=== PATIENT | male | born 1965 | race Two or more races ===

== ENCOUNTER 2021-08-06 13:17 | Emergency (ER) | payer OTHER, SELFPAY ==
--- NOTE | ~2021-08-06 | XR_ITS ---
EXAMINATION: LEFT HAND AND WRIST CLINICAL INFORMATION: Injury. COMPARISON: None TECHNIQUE: 4 views of the left hand and wrist FINDINGS: There is no fracture. No dislocation. Joint spaces are normal. XR/XR hand wrist LT IMPRESSION: Normal left hand and wrist.
[2021-08-06 13:57] VITALS: BP 131/78; PULSE 81; RESP 18; TEMP 36.9; O2SAT 98; BMI 30.2
--- NOTE | 2021-08-06 15:52 | ECG_ITS ---
Test Reason : FALL Blood Pressure : / mmHG Vent. Rate : 057 BPM Atrial Rate : 057 BPM P-R Int : 114 ms QRS Dur : 092 ms QT Int : 398 ms P-R-T Axes : 073 012 055 degrees QTc Int : 387 ms Sinus bradycardia with Premature supraventricular complexes Incomplete right bundle branch block Borderline ECG No previous ECGs available Referred By: Farhan Uriarte Electronically Signed By:Alex Ricci
[2021-08-06] MEDS: Diphth,Pertus(ACell),Tet Adult 0.5 ML SYRINGE IM (16:04)
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
[2021-08-06] MEDS: cephALEXin 500 MG CAPSULE PO (17:01)
== END 2021-08-06 17:06 | disposition home or self-care (01) ==
PROVIDERS: Emergency Provider Emergency Medicine; PCP Internal Medicine
DX: S61.512A Laceration without foreign body of left wrist, initial encounter (principal); W26.9XXA Contact with unspecified sharp object(s), initial encounter; R55 Syncope and collapse; Y93.89 Activity, other specified; Y92.019 Unspecified place in single-family (private) house as the place of occurrence of the external cause; Y99.9 Unspecified external cause status
CPT/HCPCS: 73110; 73130; 90471; 90715; 93005; 96372; 99283; 99284

== ENCOUNTER 2022-03-08 17:03 | Emergency (ER) | payer OTHER, SELFPAY ==
[2022-03-08 17:04] VITALS: BP 143/89; PULSE 70; RESP 18; TEMP 36.6; O2SAT 100; BMI 26.2
--- NOTE | 2022-03-08 17:07 | ECG_ITS ---
Test Reason : FALL Blood Pressure : / mmHG Vent. Rate : 068 BPM Atrial Rate : 068 BPM P-R Int : 130 ms QRS Dur : 090 ms QT Int : 386 ms P-R-T Axes : 074 -26 057 degrees QTc Int : 410 ms Normal sinus rhythm Normal ECG When compared with ECG of 06-AUG-2021 16:08, Premature supraventricular complexes are no longer Present Referred By: Natalya Daly Electronically Signed By:Alex Ricci
--- NOTE | 2022-03-08 17:08 | ED_ITS ---
HPI - Fall General Chief Complaint: Fall <SLY Wilson - Last Filed: 03/08/22 17:13> Stated Complaint: fall hit head <SLY Wilson - Last Filed: 03/08/22 17:13> Time Seen by Provider: 03/08/22 18:31 <SLY Wilson - Last Filed: 03/08/22 17:13> Source: patient <Patience Phan NP - Last Filed: 03/08/22 23:54> Mode of arrival: ambulatory <Patience Phan NP - Last Filed: 03/08/22 23:54> Limitations: other (Cognitive impairment) <Patience Phan NP - Last Filed: 03/08/22 23:54> History of Present Illness HPI Narrative: 57-year-old male presents for traumatic injury. He was found at the bottom of the stairs with bruising on his face and he was unconscious. Patient has a cognitive impairment, is able to make his needs known, is complaining of facial and head pain. He presents with his family. Patient does not use drugs or alcohol. <Patience Phan NP - Last Filed: 03/08/22 23:54> MD complaint: fall <Patience Phan NP - Last Filed: 03/08/22 23:54> Onset (ago): hour(s) (Within the hour of arrival) <Patience Phan NP - Last Filed: 03/08/22 23:54> Fall from: down stairs (#) (10) <Patience Phan NP - Last Filed: 03/08/22 23:54> Fall witnessed: no <Patience Phan NP - Last Filed: 03/08/22 23:54> Place fall occurred: home <Patience Phan NP - Last Filed: 03/08/22 23:54> Loss of consciousness: yes <Patience Phan NP - Last Filed: 03/08/22 23:54> Prolonged down time: unclear <Patience Phan NP - Last Filed: 03/08/22 23:54> Symptoms prior to fall: none <Patience Phan NP - Last Filed: 03/08/22 23:54> Context: tripped/slipped <Patience Phan NP - Last Filed: 03/08/22 23:54> Location of injury: head, face and neck <Patience Phan NP - Last Filed: 03/08/22 23:54> Severity: moderate <Patience Phan NP - Last Filed: 03/08/22 23:54> Severity scale (1-10): 7 <Patience Phan NP - Last Filed: 03/08/22 23:54> Quality: aching <Patience Phan NP - Last Filed: 03/08/22 23:54> Associated symptoms (after fall): headache and neck pain <Patience Phan NP - Last Filed: 03/08/22 23:54> Related Data Home Medications: Previous Rx's Medication Instructions Recorded cephalexin 500 mg tablet 500 mg PO QID 7 days #28 tabs 08/06/21 <SLY Wilson - Last Filed: 03/08/22 17:13> Allergies/Adverse Reactions: Allergies Allergy/AdvReac Type Severity Reaction Status Date / Time No Known Allergies Allergy Unverified 12/02/19 17:22 <SLY Wilson Last Filed: 03/08/22 17:13> Review of Systems Review of Systems: Constitutional: No Fever, No Chills ENT/Mouth: No Ear Pain, No Hoarseness, No sore throat Eyes: Positive bruising to the right eye orbital, No Eye Pain, No Swelling, No Redness, No Foreign Body Cardiovascular: No Chest Pain, No SOB Respiratory: No Cough, No Dyspnea Gastrointestinal: No Nausea, No Vomiting, No Diarrhea, No abdominal Pain Genitourinary: No Dysuria, No Hematuria Musculoskeletal: positive neck pain, No Myalgias, No Joint Swelling Skin: No Skin lacerations, No rash Neuro: No Weakness, No Numbness, No Paresthesias, No Loss of Consciousness, No Dizziness, positive Headache Psych: No Anxiety/Panic, No Depression Heme/Lymph: no easy bruising, no Lymphadenopathy Endocrine: No Polyuria, No Polydipsia <THONG Garcia Last Filed: 03/08/22 23:54> Yes all other systems are reviewed and are negative <Patience Phan NP - Last Filed: 03/08/22 23:54> FOR[facility]LY [facility] Past Medical History Attestation statement: The following information was validated with the patient. <Patience Phan NP - Last Filed: 03/08/22 23:54> Source: old records reviewed <Patience Phan NP - Last Filed: 03/08/22 23:54> Social History Social History: Social History Advance Directives: No Advance Directives Information Provided: Yes <SLY Wilson - Last Filed: 03/08/22 17:13> Physical Exam Vital Signs: Vital Signs: Last Vital Signs Temp 97.9 F 03/08/22 17:04 Pulse 65 03/08/22 18:48 Resp 14 03/08/22 18:48 BP 143/88 H 03/08/22 18:48 Pulse Ox 99 03/08/22 18:48 O2 Del Method 03/08/22 18:48 BMI result Body Mass Index 26.2 <SLY Wilson - Last Filed: 03/08/22 17:13> Vital Signs: Last Vital Signs Temp 97.9 F 03/08/22 17:04 Pulse 65 03/08/22 18:48 Resp 14 03/08/22 18:48 BP 143/88 H 03/08/22 18:48 Pulse Ox 99 03/08/22 18:48 O2 Del Method 03/08/22 18:48 BMI result Body Mass Index 26.2 <Patience Phan NP - Last Filed: 03/08/22 23:54> Appearance: Alert. Oriented X3. Mild distress. Known cognitive impairment. Head: Bruising and swelling across the bridge of the nose and right orbit. No Jones signs noted. No raccoon eyes noted Eyes: PERRLA. EOMI. Conjunctiva and sclera normal. Eyelids normal. ENT: TM's Normal. Pharynx normal. Uvula midline. Moist mucous membranes. No trismus noted. No drooling noted. Neck: Normal inspection. Neck supple. No meningeal signs. No neck mass noted. No vertebral step-offs noted. CVS: Normal heart rate and rhythm. Heart sound normal. No murmurs noted. Pulses equal to all extremities. Respiratory: No respiratory distress. Painless inspiration. Breath sounds normal. No wheezes/rales/rhonchi noted. Chest nontender. No accessory muscle usage noted or decreased air movement noted. Abdomen: Soft and nontender. Bowel sounds normal in all 4 quadrants. No distention noted. No organomegaly noted. No visible injury noted. Back: No CVA tenderness. Full range of motion noted. Skin: Skin warm and dry. Normal skin color. Normal skin turgor. No rashes/lesions/lacerations noted. Extremities: No lower extremity edema. Extremities exhibit normal range of motion. Extremities nontender. Neuro: cranial nerves 2-12 intact, no focal neural deficits, strength 5/5 to all extremities, No motor deficit. No sensory deficit. <Patience Phan NP - Last Filed: 03/08/22 23:54> Course Course Course Narrative: RME - 57 yo male with developmental disability, hard of hearing who presents to the ER for evaluation of an unwitnessed fall. Cousin who is EMT is here to provide history - patient was carrying a table down stairs when fell down unknown amount of stairs and hit his head. He was found unconscious at the bottom of the stairs for a brief time. When he came to he got up, walked upstairs went to the bathroom. There he passed out. Hx passing out when seeing his own blood. Not on anticoagulation. He c/o right facial pain, posterior headache and upper back pain. No chest pain, abd pain. Some abrasions and ecchymosis noted to right periorbital area and forehead. Will start with CT head/facial bones/cervical spine along with basic labs and EKG. Plan per provider in the Main ER. <SLY Wilson - Last Filed: 03/08/22 17:13> RME - 57 yo male with developmental disability, hard of hearing who presents to the ER for evaluation of an unwitnessed fall. Cousin who is EMT is here to provide history - patient was carrying a table down stairs when fell down unknown amount of stairs and hit his head. He was found unconscious at the bottom of the stairs for a brief time. When he came to he got up, walked upstairs went to the bathroom. There he passed out. Hx passing out when seeing his own blood. Not on anticoagulation. He c/o right facial pain, posterior headache and upper back pain. No chest pain, abd pain. Some abrasions and ecchymosis noted to right periorbital area and forehead. Will start with CT head/facial bones/cervical spine along with basic labs and EKG. Plan per provider in the Main ER. 57-year-old male presents for injury sustained from a fall. He was found unco nscious at the bottom of the stairs, it is suspected that he may have fell from the top of the flight up, approximately 10 steps. He does have bruising to the right periorbital area, forehead and bridge of his nose. CT head, facial bones and cervical spine were completed while patient was in the emergency department waiting room. It is noted that there is a moderate hyperdensity noted to the oc cipital area of the CT scan. Specifically slide 88/139. I did discuss these findings with the radiologist to believe that this is tentorium. Considering patient is unable to adequately articulate due to cognitive impairment, I will order MRI. I did discuss this with Dr. Christian, who supports MRI, and to also rule out posterior bleeding. 21:27 MRI negative for acute findings. Will have patient follow-up closely with his primary care physician for post concussive protocol. Plan care is to [facility]. Patient family verbalized understanding of and agrees to plan of care. Verbalized understanding of signs and symptoms indicating need for emergent intervention. <Patience Phan NP - Last Filed: 03/08/22 23:54> Medical Decision Making Differential Diagnosis Differential Diagnoses: The differential diagnosis associated with the presentation includes <Patience Phan NP - Last Filed: 03/08/22 23:54> CVA, subdural, ACS, syncope <Patience Phan NP - Last Filed: 03/08/22 2 3:54> Admission/Observation Consideration of admission/observation: Escalation of care including admission/observation considered <Patience Phan NP - Last Filed: 03/08/22 23:54> Admission will be considered if imaging indicates traumatic injury, patient would be transferred to a trauma center <THONG Garcia Last Filed: 03/08/22 23:54> Lab Data MDM Lab Attestation statement: I reviewed the patient's lab results. <Patience Phan NP - Last Filed: 03/08/22 23:54> Result Diagrams: : 03/08/22 17:58 03/08/22 17:58 <SLY Wilson - Last Filed: 03/08/22 17:13> Labs: Lab Results 03/08/22 03/08/22 03/08/22 Range/Units 17:58 17:58 17:58 WBC 9.9 (4.8-10.8) X10*3/uL RBC 4.87 (4.60-5.80) X10*6/uL Hgb 15.7 (14.0-18.0) g/dl Hct 45.2 (42.0-52.0) % MCV 92.8 (80.0-98.0) fL MCH 32.2 (27.0-33.0) pg MCHC 34.7 (31.0-36.0) g/dl RDW 12.2 (11.0-16.0) % Plt Count 218 (160-400) X10*3/uL MPV 10.0 (9.4-12.4) fL Immature Gran % (Auto) 1.1 H (0.0-0.4) % Neut % (Auto) 87.7 H (45-73) % Lymph % (Auto) 9.1 L (20-40) % Williamson % (Auto) 1.7 L (2-11) % Eos % (Auto) 0.1 (0-4) % Baso % (Auto) 0.3 (0-2) % Lymph # (Auto) 0.9 L (1.2-4.9) X10*3/uL Williamson # (Auto) 0.2 (0.1-1.2) X10*3/uL Eos # (Auto) 0.0 (0.0-0.4) X10*3/uL Baso # (Auto) 0.0 (0.0-0.2) X10*3/uL Abs Immat Gran (auto) 0.11 H (0.00-0.03) X10*3/uL Absolute Neuts (auto) 8.7 H (2.0-8.3) x10*3/uL Absolute Nucleated RBC 0.000 (0.0-0.012) X10*3/uL Nucleated RBC % (auto) 0.0 (0.0-0.2) /100WBC PT 12.6 (10.0-13.1) SEC INR 1.1 (0.9-1.1) APTT 26.9 (26.0-36.4) SEC Sodium 141 (135-145) mmol/L Potassium 4.0 (3.3-5.1) mmol/L Chloride 104 (96-108) mmol/L Carbon Dioxide 28 (22-29) mmol/L Anion Gap 13 (12-20) BUN 9 (9-16) mg/dL Creatinine 1.21 (0.5-1.4) mg/dL Estim Creat Clear Calc 49.1 Estimated GFR > 60 Random Glucose 143 H (60-115) mg/dL Calcium 9.4 (8.4-10.2) mg/dL Magnesium 2.4 (1.6-2.6) mg/dL Total Bilirubin 1.3 H (0.0-1.0) mg/dL Direct Bilirubin 0.4 (0.0-0.5) mg/dL AST 21 (5-37) U/L ALT 15 (0-40) U/L Alkaline Phosphatase 79 (39-117) U/L Total Creatine Kinase 283 H (38-174) U/L Troponin I High Sens (<3.5-35.0) ng/L Total Protein 7.1 (6.5-8.0) g/dL Albumin 4.3 (3.5-5.0) g/dL 03/08/22 03/08/22 Range/Units 17:58 17:58 WBC (4.8-10.8) X10*3/uL RBC (4.60-5.80) X10*6/uL Hgb (14.0-18.0) g/dl Hct (42.0-52.0) % MCV (80.0-98.0) fL MCH (27.0-33.0) pg MCHC (31.0-36.0) g/dl RDW (11.0-16.0) % Plt Count (160-400) X10*3/uL MPV (9.4-12.4) fL Immature Gran % (Auto) (0.0-0.4) % Neut % (Auto) (45-73) % Lymph % (Auto) (20-40) % Williamson % (Auto) (2-11) % Eos % (Auto) (0-4) % Baso % (Auto) (0-2) % Lymph # (Auto) (1.2-4.9) X10*3/uL Williamson # (Auto) (0.1-1.2) X10*3/uL Eos # (Auto) (0.0-0.4) X10*3/uL Baso # (Auto) (0.0-0.2) X10*3/uL Abs Immat Gran (auto) (0.00-0.03) X10*3/uL Absolute Neuts (auto) (2.0-8.3) x10*3/uL Absolute Nucleated RBC (0.0-0.012) X10*3/uL Nucleated RBC % (auto) (0.0-0.2) /100WBC PT (10.0-13.1) SEC INR (0.9-1.1) APTT Cancelled (26.0-36.4) SEC Sodium (135-145) mmol/L Potassium (3.3-5.1) mmol/L Chloride (96-108) mmol/L Carbon Dioxide (22-29) mmol/L Anion Gap (12-20) BUN (9-16) mg/dL Creatinine (0.5-1.4) mg/dL Estim Creat Clear Calc Estimated GFR Random Glucose (60-115) mg/dL Calcium (8.4-10.2) mg/dL Magnesium (1.6-2.6) mg/dL Total Bilirubin (0.0-1.0) mg/dL Direct Bilirubin (0.0-0.5) mg/dL AST (5-37) U/L ALT (0-40) U/L Alkaline Phosphatase (39-117) U/L Total Creatine Kinase (38-174) U/L Troponin I High Sens < 3.5 (<3.5-35.0) ng/L Total Protein (6.5-8.0) g/dL Albumin (3.5-5.0) g/dL <SLY Wilson - Last Filed: 12/23/22 17:13> Lab Results 03/08/22 03/08/22 03/08/22 Range/Units 17:58 17:58 17:58 WBC 9.9 (4.8-10.8) X10*3/uL RBC 4.87 (4.60-5.80) X10*6/uL Hgb 15.7 (14.0-18.0) g/dl Hct 45.2 (42.0-52.0) % MCV 92.8 (80.0-98.0) fL MCH 32.2 (27.0-33.0) pg MCHC 34.7 (31.0-36.0) g/dl RDW 12.2 (11.0-16.0) % Plt Count 218 (160-400) X10*3/uL MPV 10.0 (9.4-12.4) fL Immature Gran % (Auto) 1.1 H (0.0-0.4) % Neut % (Auto) 87.7 H (45-73) % Lymph % (Auto) 9.1 L (20-40) % Williamson % (Auto) 1.7 L (2-11) % Eos % (Auto) 0.1 (0-4) % Baso % (Auto) 0.3 (0-2) % Lymph # (Auto) 0.9 L (1.2-4.9) X10*3/uL Williamson # (Auto) 0.2 (0.1-1.2) X10*3/uL Eos # (Auto) 0.0 (0.0-0.4) X10*3/uL Baso # (Auto) 0.0 (0.0-0.2) X10*3/uL Abs Immat Gran (auto) 0.11 H (0.00-0.03) X10*3/uL Absolute Neuts (auto) 8.7 H (2.0-8.3) x10*3/uL Absolute Nucleated RBC 0.000 (0.0-0.012) X10*3/uL Nucleated RBC % (auto) 0.0 (0.0-0.2) /100WBC PT 12.6 (10.0-13.1) SEC INR 1.1 (0.9-1.1) APTT 26.9 (26.0-36.4) SEC Sodium 141 (135-145) mmol/L Potassium 4.0 (3.3-5.1) mmol/L Chloride 104 (96-108) mmol/L Carbon Dioxide 28 (22-29) mmol/L Anion Gap 13 (12-20) BUN 9 (9-16) mg/dL Creatinine 1.21 (0.5-1.4) mg/dL Estim Creat Clear Calc 49.1 Estimated GFR > 60 Random Glucose 143 H (60-115) mg/dL Calcium 9.4 (8.4-10.2) mg/dL Magnesium 2.4 (1.6-2.6) mg/dL Total Bilirubin 1.3 H (0.0-1.0) mg/dL Direct Bilirubin 0.4 (0.0-0.5) mg/dL AST 21 (5-37) U/L ALT 15 (0-40) U/L Alkaline Phosphatase 79 (39-117) U/L Total Creatine Kinase 283 H (38-174) U/L Troponin I High Sens (<3.5-35.0) ng/L Total Protein 7.1 (6.5-8.0) g/dL Albumin 4.3 (3.5-5.0) g/dL 03/08/22 03/08/22 Range/Units 17:58 17:58 WBC (4.8-10.8) X10*3/uL RBC (4.60-5.80) X10*6/uL Hgb (14.0-18.0) g/dl Hct (42.0-52.0) % MCV (80.0-98.0) fL MCH (27.0-33.0) pg MCHC (31.0-36.0) g/dl RDW (11.0-16.0) % Plt Count (160-400) X10*3/uL MPV (9.4-12.4) fL Immature Gran % (Auto) (0.0-0.4) % Neut % (Auto) (45-73) % Lymph % (Auto) (20-40) % Williamson % (Auto) (2-11) % Eos % (Auto) (0-4) % Baso % (Auto) (0-2) % Lymph # (Auto) (1.2-4.9) X10*3/uL Williamson # (Auto) (0.1-1.2) X10*3/uL Eos # (Auto) (0.0-0.4) X10*3/uL Baso # (Auto) (0.0-0.2) X10*3/uL Abs Immat Gran (auto) (0.00-0.03) X10*3/uL Absolute Neuts (auto) (2.0-8.3) x10*3/uL Absolute Nucleated RBC (0.0-0.012) X10*3/uL Nucleated RBC % (auto) (0.0-0.2) /100WBC PT (10.0-13.1) SEC INR (0.9-1.1) APTT Cancelled (26.0-36.4) SEC Sodium (135-145) mmol/L Potassium (3.3-5.1) mmol/L Chloride (96-108) mmol/L Carbon Dioxide (22-29) mmol/L Anion Gap (12-20) BUN (9-16) mg/dL Creatinine (0.5-1.4) mg/dL Estim Creat Clear Calc Estimated GFR Random Glucose (60-115) mg/dL Calcium (8.4-10.2) mg/dL Magnesium (1.6-2.6) mg/dL Total Bilirubin (0.0-1.0) mg/dL Direct Bilirubin (0.0-0.5) mg/dL AST (5-37) U/L ALT (0-40) U/L Alkaline Phosphatase (39-117) U/L Total Creatine Kinase (38-174) U/L Troponin I High Sens < 3.5 (<3.5-35.0) ng/L Total Protein (6.5-8.0) g/dL Albumin (3.5-5.0) g/dL <Patience Phan NP - Last Filed: 03/08/22 23:54> Radiology Impression Discussion of test interpretation with radiology: I discussed test interpretation with the radiologist and I have reviewed the radiologist's reading. <Patience Phan NP - Last Filed: 03/08/22 23:54> Radiologist Impression: EXAMINATION: NONCONTRAST HEAD CT NONCONTRAST MAXILLOFACIAL CT NONCONTRAST CERVICAL SPINE CT INDICATION INFORMATION: Trauma, pain. COMPARISON: None. TECHNIQUE: Separate noncontrast CT examinations of the head, maxillofacial bones, and cervical spine were performed. Coronal and sagittal images were created for each examination at the technologist workstation. This CT examination was performed using dose optimization techniques as appropriate, variously including the following: *Automated exposure control *Adjustment of mA and/or kV according to patient size (this includes techniques or standardized protocols for targeted exams where dose is matched to indication/reason for exam; i.e. extremities or head) *Use of iterative reconstruction technique DLP: 595 mGy-cm FINDINGS: Head: There is no evidence of acute intracranial hemorrhage or territorial infarction. No abnormal mass effect or midline shift is seen. Mccurdy to white matter differentiation is well preserved. No extra-axial fluid collections are identified. No hydrocephalus. Cavum septum pellucidum at vergae. No significant volume loss. There is no abnormal attenuation within the brain parenchyma. Small left frontal scalp hematoma. No calvarial fracture. The mastoid air cells are well aerated. Maxillofacial: Small subcutaneous hematoma in the premaxillary and periorbital region on the right. No acute maxillofacial fractures are seen. The frontal, maxillary, ethmoid, and sphenoid sinuses are well aerated. The uncinate process is normal bilaterally. The nasal septum is midline. The mandibular heads are well-seated in the condylar fossa. The patient is edentulous. The orbits demonstrate a normal appearance bilaterally. The globes are intact, and there are no suspicious findings to suggest retrobulbar hemorrhage. Cervical spine: There is mild reversal of the normal cervical lordosis with apex at C5 C7. The atlantoaxial and atlantooccipital articulations are intact. Vertebral body heights are maintained. There is multilevel intervertebral disc space narrowing with endplate osteophyte formation and facet arthropathy. No evidence of acute fracture. No prevertebral soft tissue swelling. Visualized portions of the lung apices are unremarkable. The thyroid gland is unremarkable. CT/CT head/brain wo IV con IMPRESSION: 1.? No acute intracranial abnormalities. 2.? Small left frontal scalp hematoma. 3.? Small subcutaneous hematoma in the premaxillary and periorbital region on the right. 4.? No acute maxillofacial fractures. 5.? No acute cervical fractures or malalignment. ? EXAMINATION: MR BRAIN WITHOUT CONTRAST CLINICAL INFORMATION: Head trauma. COMPARISON: Head CT dated 03/08/2022. TECHNIQUE: Multiplanar, multisequence imaging of the brain was performed without contrast. FINDINGS: No diffusion abnormalities are identified to suggest an acute infarct. The ventricles are normal in size. No mass effect or midline shift is seen. Mild chronic white matter microangiopathic changes noted. The brainstem and cerebellum are normal. There is a very small right frontal scalp lipoma. The gradient refocused acquisition is normal. The craniovertebral junction, marrow signal, and midline structures are normal. The major intracranial flow voids at the level of the [place] are preserved. The dural venous sinus flow voids are maintained. The mastoid air cells and paranasal sinuses are well aerated. Incidental small pineal cyst noted. Prominence of the extra-axial fluid spaces in the posterior fossa around the cerebellum may be due to small subdural hygromas. There is a left frontal scalp soft tissue swelling which is also visible on the recent head CT examination. Mild right premaxillary soft tissue swelling also is stable. MR/MR head/brain wo con IMPRESSION: No acute intracranial process. Mild chronic white matter microangiopathic changes. Left frontal scalp soft tissue contusion and mild right maxillary soft tissue swelling, as seen on the recent CT study. Mild prominence of the extra-axial fluid spaces around the cerebellar hemispheres may be due to volume loss or small chronic subdural hygromas. <Patience Phan NP - Last Filed: 03/08/22 23:54> Independent Historian Clinical information obtained from an independent historian. History obtained from or confirmed by: Other (Family) <Patience Phan NP - Last Filed: 03/08/22 23:54> External Record Review External record reviewed: Outpatient record <Patience Phan NP - Last Filed: 03/08/22 23:54> Discharge Plan Discharge Clinical Impression: Fall, Concussion with loss of consciousness, Contusion of face <SLY Wilson - Last Filed: 03/08/22 17:13> Patient Disposition: Home, Self-Care <SLY Wilson - Last Filed: 03/08/22 17:13> Instructions: Concussion (ED), Cognitive Disorders after Traumatic Brain Injury (ED), Post Concussion Syndrome (ED), Hematoma (ED), Facial Contusion (ED) <SLY Wilson - Last Filed: 03/08/22 17:13> Additional Instructions: You were evaluated for injury sustained from a fall. CT scan of head cervical spine and facial bones are negative for acute findings. MRI of the brain is negative. You must follow-up with primary care physician for post concussive protocol. Take Tylenol 650 mg every 6 hours as needed for headaches and pain management. If symptoms worsen, you lose balance, you lose consciousness, or if you have any other concerning symptoms please return to the emergency department for evaluation. Thank you for choosing this emergency department for evaluation. Please follow-up with primary care physician as needed. Return to the emergency department for any new, concerning, or worsening symptoms. <SLY Wilson - Last Filed: 03/08/22 17:13> Prescriptions: No Action cephalexin 500 mg tablet 500 mg PO QID 7 Days Qty: 28 0RF <SLY Wilson - Last Filed: 03/08/22 17:13> Interventions: ED Discharge Assessment Last Done: 03/08/22 21:44 <SLY Wilson - Last Filed: 03/08/22 17:13> Discharge Date/Time: 03/08/22 21:45 <SLY Wilson - Last Filed: 03/08/22 17:13>
[2022-03-08 18:05] LABS: MANUAL DIFF FLAG NO
[2022-03-08 18:14] LABS: INTERNATIONAL NORM RATIO 1.1 (0.9-1.1); Prothrombin Time 12.6 SEC (10.0-13.1)
[2022-03-08 18:16] LABS: Partial Thromboplastin Time 26.9 SEC (26.0-36.4)
[2022-03-08 18:22] LABS: Basophils Percent Auto 0.3 % (0-2); Eosinophils Percent Auto 0.1 % (0-4); Hematocrit 45.2 % (42.0-52.0); Hemoglobin 15.7 g/dl (14.0-18.0); Imm Gran Abs Auto 0.11 X10*3/uL (0.00-0.03); Imm Gran Pct Auto 1.1 % (0.0-0.4); Lymphocytes Absolute Auto 0.9 X10*3/uL (1.2-4.9); Lymphocytes Percent Auto 9.1 % (20-40); Mean Corpuscular HGB Conc 34.7 g/dl (31.0-36.0); Mean Corpuscular Hemoglobin 32.2 pg (27.0-33.0); Mean Corpuscular Volume 92.8 fL (80.0-98.0); Monocytes Absolute Auto 0.2 X10*3/uL (0.1-1.2); Monocytes Percent Auto 1.7 % (2-11); Neutrophils Absolute Auto 8.7 x10*3/uL (2.0-8.3); Neutrophils Percent Auto 87.7 % (45-73); Platelet Count 218 X10*3/uL (160-400); Red Blood Count 4.87 X10*6/uL (4.60-5.80); Red Cell Distribution Width 12.2 % (11.0-16.0); White Blood Count 9.9 X10*3/uL (4.8-10.8)
[2022-03-08 18:38] LABS: Alanine Aminotransferase 15 U/L (0-40); Albumin Level 4.3 g/dL (3.5-5.0); Alkaline Phosphatase 79 U/L (39-117); Anion Gap 13 (12-20); Aspartate Amino Transferase 21 U/L (5-37); Bilirubin Direct 0.4 mg/dL (0.0-0.5); Bilirubin Total 1.3 mg/dL (0.0-1.0); Blood Urea Nitrogen 9 mg/dL (9-16); Calcium 9.4 mg/dL (8.4-10.2); Carbon Dioxide 28 mmol/L (22-29); Chloride 104 mmol/L (96-108); Creatinine Clr Calc Pharmacy 49.1; Estimated Glomerular Filt Rate > 60; Glucose Random 143 mg/dL (60-115); Magnesium 2.4 mg/dL (1.6-2.6); Sodium 141 mmol/L (135-145); Total Protein 7.1 g/dL (6.5-8.0)
[2022-03-08 18:48] VITALS: BP 143/88; PULSE 65; RESP 14; O2SAT 99
--- NOTE | 2022-03-08 19:08 | PC.NURSE ---
MRI screening form completed. Nephew to cosign MRI screening form. Provider aware and MRI Aware.
[2022-03-08 19:30] LABS: Troponin-I High Sensitivity < 3.5 ng/L (<3.5-35.0)
== END 2022-03-08 21:45 | disposition home or self-care (01) ==
PROVIDERS: Physician Assistant; Emergency Provider Emergency Medicine
DX: S06.0X1A Concussion with loss of consciousness of 30 minutes or less, initial encounter (principal); S00.83XA Contusion of other part of head, initial encounter; R51.9 Headache, unspecified; M54.2 Cervicalgia; W17.89XA Other fall from one level to another, initial encounter; Y93.9 Activity, unspecified; Y92.9 Unspecified place or not applicable; Y99.9 Unspecified external cause status
CPT/HCPCS: 36415; 70450; 70486; 70551; 72125; 80048; 80076; 82550; 83735; 84484; 85025; 85610; 85730; 93005; 99284; 99285